=== PATIENT | male | born 1940 | race Caucasian/White ===

== ENCOUNTER 2022-03-21 08:20 | Outpatient (CLI) | payer MEDICARE | END 2022-03-21 08:21 | disposition home or self-care (01) | LOC: CSHULT 08:20 | PROVIDERS: ATTEND Internal Medicine | DX: I77.811 Abdominal aortic ectasia (principal) | CPT/HCPCS: 76706 ==

== ENCOUNTER 2024-06-20 09:12 | Outpatient (CLI) | payer MEDICARE | END 2024-06-20 09:13 | disposition home or self-care (01) | LOC: CSHULT 09:12 | PROVIDERS: ATTEND Internal Medicine | DX: I71.43 Infrarenal abdominal aortic aneurysm, without rupture (principal) | CPT/HCPCS: 76706 ==